=== PATIENT | female | born 1985 | race Caucasian/White ===

== ENCOUNTER 2016-11-09 15:29 | Emergency (ER) | payer SELFPAY ==
[~2016-11-09 15:29] MED LIST: SUMA5SPR PO
--- NOTE | 2016-11-09 15:34 | NUR ---
NO ANSWER IN ER LOBBY
== END 2016-11-09 15:31 | disposition left against medical advice (07) ==
LOC: MED 15:29
DX: I10 Essential (primary) hypertension (principal); Z53.21 Procedure and treatment not carried out due to patient leaving prior to being seen by health care provider

== ENCOUNTER 2021-05-09 07:48 | Emergency (ER) | payer BC ==
[~2021-05-09] VITALS: Ht 165.1 cm; Wt 104.3 kg
[2021-05-09 08:18] VITALS: BP 119/84
[2021-05-09] MEDS ORDERED: PROM473S5 PO (09:44)
--- NOTE | 2021-05-09 10:00 | NUR ---
36/F BIB SELF WITH C/O COUGH, CONGESTION AND CHEST PAIN. TESTED POSITIVE FOR COVID ON 05/01/21, DENIES SOB, FEVERS. PATIENT STATES HX OF ANXIETY, STATING "I THINK I AM JUST ANXIOUS." PATIENT STATES CHEST PAIN IS 3/10 INTERMITTENT PRESSURE, DENIES SOB, FEVERS, N/V/D.
[2021-05-09 10:18] VITALS: BP 119/84
--- NOTE | 2021-05-09 10:19 | NUR ---
Patient discharged with v/s stable. Written and verbal after care instructions ABOUT COVID 19 given and explained. Patient alert, oriented and verbalized understanding of instructions. Ambulatory with steady gait. All questions addressed prior to discharge. ID band removed. Patient advised to follow up with PMD. Rx of PROMETHAZINE-DM given. Patient educated on indication of medication including possible reaction and side effects. Opportunity to ask questions provided and answered.
== END 2021-05-09 10:19 | disposition home or self-care (01) ==
LOC: MED 07:48
DX: U07.1 COVID-19 (principal)
CPT/HCPCS: 93005; 99283